=== PATIENT | female | born 1985 | race Caucasian/White ===

== ENCOUNTER 2021-10-18 05:37 | Outpatient (CLI) | payer MEDICAID ==
[~2021-10-18] VITALS: Ht 157.5 cm; Wt 57.3 kg
== END 2021-10-18 13:47 | disposition home or self-care (01) ==
LOC: PREOP 05:37
PROVIDERS: ATTEND Obstetrics & Gynecology
DX: Z01.818 Encounter for other preprocedural examination (principal)

== ENCOUNTER 2021-10-25 05:51 | Day surgery (SDC) | payer MEDICAID ==
[~2021-10-25] VITALS: Ht 157 cm; Wt 57.3 kg
[2021-10-25] VITALS (10 sets, daily range): BP systolic 97–119; BP diastolic 63–84
[2021-10-25] MEDS: LACTATED RINGERS 1,000 ML IV PRN ×2 (06:25→08:10)
[2021-10-25] MEDS ORDERED: LIDOCAINE/EPI 2% 1:200,00 (XYLOCAINE) 20 ML VIAL ONE (07:05)
[2021-10-25] MEDS ORDERED: MIDAZOLAM 2 MG/2 ML (VERSED) VIAL ONE (07:24)
[2021-10-25] MEDS ORDERED: fentaNYL INJ 100 MCG/2 ML AMP ONE (07:24)
--- NOTE | 2021-10-25 07:39 | Progress Note-Pre Operative ---
Pre-Operative Progress Note Date of Available H&P: Oct 15, 2021 Date H&P Reviewed: Oct 25, 2021 Time H&P Reviewed: 07:20 History & Physical: H&P Reviewed, Patient Examed, No changes noted Pre-Operative Diagnosis: cyclical right lower quadrant pain. plan diagnostic laparoscopy SHAY ROBERTO MD Oct 25, 2021 07:39
[2021-10-25] MEDS ORDERED: ONDANSETRON 4 MG/2 ML (SDV) Z0FRAN ONE (08:11)
[2021-10-25] MEDS ORDERED: ROCURONIUM 50 MG/5 ML (ZEMURON) VIAL IV ONE (08:11)
[2021-10-25] MEDS ORDERED: proPOfol 200 MG/20 ML (DIPRIVAN) VIAL IV ONE (08:11)
[2021-10-25] MEDS ORDERED: LIDOCAINE PF 2% 5 ML (XYLOCAINE) VIAL ONE (08:11)
--- NOTE | 2021-10-25 08:42 | Anesthesia-General Post-Op ---
General Patient Condition Mental Status/LOC: Same as Preop Cardiovascular: Satisfactory Nausea/Vomiting: Absent Respiratory: Satisfactory Pain: Controlled Complications: Absent Post Op Complications Complications None Follow Up Care/Instructions Patient Instructions None needed. Anesthesia/Patient Condition Patient Condition Patient is doing well, no complaints, stable vital signs, no apparent adverse anesthesia problems. No complications reported per nursing. PATRICK ARCHER CRNA Oct 25, 2021 08:42
[2021-10-25] MEDS ORDERED: fentaNYL INJ 100 MCG/2 ML AMP IVP ONE (08:45)
[2021-10-25] MEDS ORDERED: ONDANSETRON 4 MG/2 ML (SDV) Z0FRAN IVP PRN (08:45)
[2021-10-25] MEDS ORDERED: morphine INJ 10 MG/ML 1ML (SYR OR VIAL) IVP ONE (08:45)
[2021-10-25] MEDS ORDERED: oxyCODONE/APAP 5/325MG (PERCOCET 5) TABLET ONE (09:41)
[2021-10-25] MEDS ORDERED: oxyCODONE/APAP 5/325MG (PERCOCET 5) TABLET PO ONE (09:45)
[2021-10-25] MEDS ORDERED: OXYC5CAP18 PO (09:51)
[2021-10-25] MEDS ORDERED: NEOSTIGMINE (BLOXIVERZ ) 1 MG/1ML 10 ML VIAL ONE (09:55)
[2021-10-25] MEDS ORDERED: SEVOFLURANE (ULTANE) 15 ML INHAL SOLN ONE (09:55)
[2021-10-25] MEDS ORDERED: GLYCOPYRROLATE 0.2 MG/ML (ROBINUL) 2 ML VIAL ONE (09:55)
[2021-10-26] MEDS ORDERED: OXYC5CAP18 PO (12:07)
[2021-10-29] MEDS ORDERED: OXYC5TAB PO (10:09)
--- NOTE | 2021-11-05 13:35 | OPERATIVE REPORT ---
NAME: GINGER HUFF [facility] REC#: [id number] : 1985 ADMIT DATE: 10/25/21 DATE OF SERVICE: 10/25/2021 PREOPERATIVE DIAGNOSES: Right lower quadrant pain with history of tubal ligation and endometrial ablation. POSTOPERATIVE DIAGNOSES: Right lower quadrant pain with history of tubal ligation and endometrial ablation. PROCEDURE: Diagnostic laparoscopy with amputation of proximal stump of right fallopian tube and fulguration of suspected endometriosis. SURGEON: Dr. Chappell. ANESTHESIA: General. ESTIMATED BLOOD LOSS: Less than 25 mL. COMPLICATIONS: None. CONDITION: Stable. FINDINGS: Smooth liver edge, normal-appearing appendix, retroverted uterus, normal-appearing ovaries bilaterally, normal diameter ureters coursing as expected along the pelvic sidewall, left remaining stump of fallopian tube unremarkable and normal diameter, right slightly dilated with a cystic like appearance and slight discoloration almost of hemosiderin component with normal-appearing cirrhosis. PROCEDURE IN DETAIL: After the risks, benefits and alternatives of the procedure were described to the patient, she was taken to the operating room where general anesthesia was obtained without difficulty. She was prepped and draped in the usual sterile fashion with SCDs in place and Fay catheter. A sponge stick was placed inside the patient's vagina for uterine manipulation and attention was turned to the abdominal portion of the procedure. A 5 mm skin incision was made in the umbilical fold and a Veress needle was advanced while tenting the abdominal wall upward. Pneumoperitoneum was achieved and the Veress needle was removed, and a 5 mm trocar and sleeve were advanced under direct visualization without difficulty. The abdomen was surveyed with the above findings and the patient was placed in Trendelenburg. A 5 mm skin incision was made in the left lower quadrant and suprapubic midline and corresponding trocar and sleeve were advanced under direct visualization without difficulty. The pelvis was surveyed with the above findings. A LigaSure device was used to amputate the remaining proximal stump of the right fallopian tube and this was sent for pathology. The small area of possible endometriosis was located at the entrance of the pelvic brim on the right side wall between peritoneal folds of adhesions connecting to the omentum. This was grasped and burned without difficulty. No other areas of endometriosis were appreciated. All instruments were removed from the patient's abdomen and the skin incisions were closed with subcuticular 4-0 Monocryl stitch. Dermabond was placed. Local anesthesia had been injected immediately prior to incisions. Sponge stick and Fay catheter were removed. The patient tolerated the procedure well. Sponge, lap, needle and instrument counts were correct, and she was taken to the recovery room awake and in stable condition. Job ID: [id number] DocumentID: [id number] Dictated Date: 10/25/2021 08:40:12 Supervisor [employer] Date: 10/25/2021 10:03:40 Dictated By: Shay Chappell MD <Dictated by SHAY CHAPPELL MD> <Electronically signed by SHAY CHAPPELL MD> 10/25/21 [id number] MTDD
== END 2021-10-25 10:40 | disposition home or self-care (01) ==
LOC: SDC 05:51
PROVIDERS: ATTEND Obstetrics & Gynecology
DX: N70.11 Chronic salpingitis (principal); D25.9 Leiomyoma of uterus, unspecified
CPT/HCPCS: 84703; 87081; 94664